=== PATIENT | male | born 1980 | race Caucasian/White ===

== ENCOUNTER 2019-12-14 15:54 | Emergency (ER) | payer MEDICAID ==
[~2019-12-14] VITALS: Ht 167.6 cm; Wt 86.5 kg
[2019-12-14 16:01] VITALS: BP 134/105
--- NOTE | 2019-12-14 16:17 | NUR ---
BIB [facility]. C/O FLU LIKE SYMPTOMS (FEVER, BODY ACHES, COUGH) X2 DAYS FEELING SOMEWHAT DEPRESSED TODAY-THERFORE DRANK 1/5 VODKA TODAY. APPEARS WELL, MODERATELY INTOXICATED/BUT PLEASANT/GOOD HISOTORIAN
[2019-12-14] MEDS ORDERED: ONDANSETRON ODT 4 MG ONE (16:27)
[2019-12-14] MEDS ORDERED: LORazepam 1MG TABLET ONE (16:27)
[2019-12-14] MEDS ORDERED: ONDANSETRON ODT 4 MG PO ONE (16:30)
[2019-12-14] MEDS ORDERED: LORazepam 1MG TABLET PO ONE (16:30)
--- NOTE | 2019-12-14 16:37 | NUR ---
-WITH CLINICAL SCREEN. 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
--- NOTE | 2019-12-14 16:40 | NUR ---
TOLERATING PROVIDED PO FLUIDS
--- NOTE | 2019-12-14 16:51 | NUR ---
Medicated per Emar. Patient's phone plugged in to call local cousin with whom patient can stay with
--- NOTE | 2019-12-14 17:23 | NUR ---
WITH REASSESSMENT PATIENT REPORT "I DONT HAVE ANY NAUSEA ANY MORE AND MY ANXIETY IS TOTALLY DOABLE NOW." ATIENT ON THE PHONE WITH COUSIN WHO LIVES IN [place] WHO WILL LIKELY HOUSE PATIENT FOR AWHILE
--- NOTE | 2019-12-14 18:15 | NUR ---
WALKED TO RESTROOM -AMBULATED TO RESTROOM WITH NO DIFFICULTY
--- NOTE | 2019-12-14 18:28 | NUR ---
WITH REASSESSMENT PATIENT STILL QUITE CONFUSED-FAMILY CALLED-TO PICK PATIENT UP SHORTLY MARISSA MADE AWARE
--- NOTE | 2019-12-14 19:23 | NUR ---
Patient sleeping deeply- Ride called. They had a detour- they estimate they will be here in an hour. Patient still too intoxicated to wait in Lobby per commercial real estate underwriter's opinion
== END 2019-12-14 20:10 ==
LOC: ED 17:07
DX: F10.229 Alcohol dependence with intoxication, unspecified (principal); M79.10 Myalgia, unspecified site; R50.9 Fever, unspecified; F41.1 Generalized anxiety disorder; Y90.9 Presence of alcohol in blood, level not specified
CPT/HCPCS: 71045; 99283; Q0162